=== PATIENT | female | born 1940 | race Caucasian/White ===

== ENCOUNTER → 2016-04-16 | Outpatient (CLI) | payer MEDICARE ==
[~2016-04-16] MED LIST: APIX5TAB PO; LEVO88TA2 PO; LOSA50TA PO; LOVA40TA PO; OMEG5CAP; PANT40TA3 PO; PROZ20CA11 PO
[2016-04-16 09:57] LABS: BLOOD GAS BASE EXCESS -2.8 mmol/L (-2-2); BLOOD GAS CARBOXYHEMOGLOBIN 1.4 % (0-4); BLOOD GAS HCO3 22 mmol/L (22-26); BLOOD GAS METHEMOGLOBIN 0.9 % (0-2); BLOOD GAS O2 HGB SATURATION 96 % (90-100); BLOOD GAS OXYGEN CONTENT 18.3 Vol % (12.0-20.0); BLOOD GAS PCO2 37 mmHg (38-42); BLOOD GAS PO2 107 mmHg (61-120); BLOOD GAS TOTAL HGB 13.5 G/DL (12.0-16.0); CRITICAL VALUE NO; DRAW SITE RT RADIAL; FIO2 21 %; NUMBER OF ARTERIAL PUNCTURES 1; TEMP CORR TO 98.6
[2016-04-16 09:58] LABS: STAT NO; ULNAR PULSE PRESENT
--- NOTE | 2016-04-19 09:55 | RSPPFT ---
DATE OF PROCEDURE: 04/16/16 COMMENTS: Spirometry with FVC of 2.4 predicted 3.0, FEV1 of 1.9 predicted 2.1, FEV1/FVC ratio 79% predicted 69%. Lung volumes are basically within the predicted range as well as the DLCO. IMPRESSION: On the basis of the above, patient has flow values, lung volumes, DLCO and flow volume loop within the predicted range.
== END ==
LOC: HRSP 07:46
PROVIDERS: ATTEND Internal Medicine Pulmonary Disease
DX: R05 Cough (principal)
CPT/HCPCS: 36600; 82805; 94060; 94620; 94726; 94729